=== PATIENT | male | born 1990 | race Two or more races ===

== ENCOUNTER 2024-12-04 19:46 | Emergency (ER) | payer OTHER ==
[~2024-12-04] VITALS: Ht 177.8 cm; Wt 86.2 kg
[2024-12-04 19:59] VITALS: BP 129/78; O2SAT 100
== END 2024-12-04 22:29 | disposition home or self-care (01) ==
LOC: ER 20:07
DX: M54.2 Cervicalgia (principal); R21 Rash and other nonspecific skin eruption